=== PATIENT | female | born 2005 | race Two or more races ===

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

== ENCOUNTER 2025-01-05 04:41 | Emergency (ER) | payer MEDICAID ==
[~2025-01-05] VITALS: Ht 157.5 cm; Wt 59.0 kg
[~2025-01-05 04:41] MED LIST: VALA100026 PO
[2025-01-05] MEDS ORDERED: VALA100026 PO (04:57)
[2025-01-05 05:02] VITALS: BP 124/70; TEMP 98.2; O2SAT 99
== END 2025-01-05 05:04 | disposition home or self-care (01) ==
LOC: ER 04:49
DX: B00.1 Herpesviral vesicular dermatitis (principal); Z79.624 Long term (current) use of inhibitors of nucleotide synthesis; Z88.0 Allergy status to penicillin

== ENCOUNTER 2025-01-26 23:12 | Emergency (ER) | payer MEDICAID ==
[~2025-01-26] VITALS: Ht 154.9 cm; Wt 59.0 kg
[2025-01-27 01:33] VITALS: BP 112/73; TEMP 98.6; O2SAT 98
[2025-01-27] MEDS ORDERED: VALA100026 PO (02:23)
== END 2025-01-27 02:40 | disposition home or self-care (01) ==
LOC: ER 23:23
DX: B00.1 Herpesviral vesicular dermatitis (principal); Z79.624 Long term (current) use of inhibitors of nucleotide synthesis; Z88.0 Allergy status to penicillin; Z91.013 Allergy to seafood; Z91.018 Allergy to other foods

== ENCOUNTER 2025-06-05 22:42 | Emergency (ER) | payer MEDICAID ==
[~2025-06-05] VITALS: Ht 154.9 cm; Wt 59.0 kg
[2025-06-05 22:52] VITALS: BP 104/73; TEMP 98.5
[2025-06-05 23:00] VITALS: O2SAT 99
[2025-06-05] MEDS ORDERED: PRED20TA PO (23:00)
[2025-06-05] MEDS ORDERED: VALA500T40 PO (23:00)
[2025-06-05] MEDS ORDERED: ACYCLOVIR 200 MG CAPSULE ONE (23:04)
[2025-06-05] MEDS: ACYCLOVIR 200 MG CAPSULE PO ONE (23:07)
[2025-06-05] MEDS: VALACYCLOVIR HCL 500 MG TABLET PO ONE (23:15)
== END 2025-06-05 23:19 | disposition home or self-care (01) ==
LOC: ER 22:53
DX: L30.8 Other specified dermatitis (principal); Z79.52 Long term (current) use of systemic steroids; Z79.624 Long term (current) use of inhibitors of nucleotide synthesis; Z88.0 Allergy status to penicillin